=== PATIENT | female | born 1950 | race African-American/Black ===

== ENCOUNTER 2017-07-12 21:01 | Emergency (ER) | payer MEDICARE ==
[2015-07-06 08:40] VITALS: BMI 30.8
[~2017-07-12 21:01] MED LIST: AMBIEN10 MG PO; AMITRIPTYLINE100 MG PO; ASPIRIN325 MG PO; CELEXA20 MG PO; COMBIGAN OPHT DR5 ML EACH EYE; COMBIVENT RESPIM4 GM INH; DEPAKOTE ER500 MG PO; FERROUS SULFAT325 MG PO; GLUCOPHAGE500 MG PO; HYDROCODONE-APA1 TAB PO; IMITREX50 MG PO; IRON TAB; LANTUS INSULIN10 ML SC; LANTUS INSULIN10 ML SQ; NEURONTIN 400400 MG PO; NEXIUM40 MG PO; PRAVACHOL40 MG PO; TOPAMAX50 MG PO; TOPROL XL100 MG PO; VENTOLIN HFA18 GM INH; XANAX1 MG PO; ZOFRAN4 MG PO
[2017-07-12 21:41] LABS: BASOPHILS 0.2 % (0-2); EOSINOPHILS 1.1 % (0-7); HEMATOCRIT 39.6 % (36.0-48.0); HEMOGLOBIN 13.3 g/dL (12-16); IMMATURE GRANULOCYTES 0.1 % (0-5); LYMPHOCYTES 47.6 % (15-50); MCH 31.9 pg (26.0-34.0); MCHC 33.6 g/dL (31.0-37.0); MEAN PLATELET VOLUME 10.9 fL (7.4-10.4); MONOCYTES 9.5 % (2-11); NEUTROPHILS 41.5 % (40-80); PLATELET COUNT 212 10x3/uL (130-400); RBC 4.17 10x6/uL (4.00-5.40); WBC 8.2 10x3/uL (4.8-10.8)
[2017-07-12 21:44] LABS: INR 0.97 (0.85-1.17); PROTIME 12.5 SECONDS (11.6-15.0)
[2017-07-12 21:58] LABS: ALBUMIN 3.9 g/dL (3.4-5.0); ALKALINE PHOSPHATASE 81 U/L (46-116); ALT (SGPT) 17 U/L (10-68); CALC OSMOLALITY 282 mosm/kg (275-300); CALCIUM 8.3 mg/dL (8.5-10.1); CARBON DIOXIDE 28.6 mmol/L (21.0-32.0); CHLORIDE - SERUM 107 mmol/L (98-107); CREATININE - SERUM 0.6 mg/dL (0.6-1.3); GLUCOSE 90 mg/dL (74-106); POTASSIUM - SERUM 4.3 mmol/L (3.5-5.1); PROTEIN - SERUM 6.9 g/dL (6.4-8.2); SODIUM 143 mmol/L (136-145); UREA NITROGEN 6 mg/dL (7-18); eGFR NON AFRICAN AMERICAN > 90 mL/min (90-120)
[2017-07-12 22:19] LABS: CREATINE KINASE 229 UL (21-215); MAGNESIUM - SERUM 1.8 mg/dL (1.8-2.4); PRO BNP 165 pg/mL (0-125); TROPONIN-I < 0.017 ng/mL (0.000-0.060)
[2017-07-12 22:23] LABS: CKMB 0.6 U/L (0.0-3.6)
== END 2017-07-12 23:50 | disposition home or self-care (01) ==
LOC: D.ER 21:01
PROVIDERS: Emergency Medicine; Nurse Practitioner Family
DX: R53.1 Weakness (principal); F19.939 Other psychoactive substance use, unspecified with withdrawal, unspecified; Z91.14 Patient's other noncompliance with medication regimen

== ENCOUNTER 2017-08-06 21:58 | Emergency (ER) | payer MEDICARE, MEDICAID ==
[2015-07-06 08:40] VITALS: BMI 30.8
== END 2017-08-06 23:25 | disposition home or self-care (01) ==
LOC: D.ER 21:58
DX: B34.9 Viral infection, unspecified (principal); F17.200 Nicotine dependence, unspecified, uncomplicated